=== PATIENT | female | born 1960 | race Caucasian/White ===

== ENCOUNTER 2025-06-09 04:55 | Inpatient (IN) ==
[2025-05-22 13:54] LABS: INR 0.9 (0.9-1.1); Prothrombin Time 13.2 sec (11.9-14.5)
[2025-05-22 14:03] LABS: Basophils # (Auto) 0.08 K/mcL (0.00-0.30); Basophils % (Auto) 1.4 % (0.0-2.0); Eosinophils # (Auto) 0.19 K/mcL (0.00-0.70); Eosinophils % (Auto) 3.2 % (0.0-7.0); Hematocrit 39.5 % (34.1-44.9); Hemoglobin 13.0 g/dL (11.2-15.7); Lymphocytes # (Auto) 1.31 K/mcL (1.50-4.80); Lymphocytes % (Auto) 22.2 % (15.5-49.0); Mean Corpuscular HGB Conc 32.9 g/dL (31.0-36.0); Monocytes # (Auto) 0.43 K/mcL (0.10-0.90); Monocytes % (Auto) 7.3 % (1.0-12.0); Neutrophils % (Auto) 65.4 % (38.0-78.0); Platelet Count 239 K/mcL (140-440); RBC 4.16 M/mcL (3.59-5.38); WBC 5.9 K/mcL (4.5-11.0)
[2025-05-22 14:07] LABS: Estimated Average Glucose(eAG) 128 mg/dL; Hemoglobin A1C 6.1 % Hgb (4.0-6.0)
[2025-05-22 14:16] LABS: Bilirubin,Urine Negative (Negative); Color,Urine STRAW; Glucose,Urine (UA) Negative (Negative); Ketones,Urine Negative (Negative); Leukocyte Esterase,Urine Negative /uL (Negative); PH,Urine 6.0 (5.0-9.0); Protein,Urine Negative (Negative); Specific Gravity,Urine 1.002 (1.000-1.035); Urobilinogen,Urine Negative
[2025-05-22 14:18] LABS: ALT/SGPT 19 U/L (<40); AST/SGOT 22 U/L (<32); Albumin 4.1 gm/dL (3.2-5.2); Albumin/Globulin Ratio 1.6 (1.0-2.3); Alkaline Phosphatase 40 U/L (39-117); Anion Gap 9.0 (8.0-16.0); Bilirubin,Total 0.2 mg/dL (0.1-1.0); Blood Urea Nitrogen 11 mg/dL (8-23); Calcium 9.5 mg/dL (8.6-10.4); Carbon Dioxide 26 mmol/L (22-30); Chloride 105 mmol/L (96-108); Globulin 2.5 gm/dL (2.2-3.7); Glucose 96 mg/dL (70-105); Potassium 3.9 mmol/L (3.3-5.1); Sodium 140 mmol/L (133-145)
[2025-06-09] MEDS: ACETAMINOPHEN 500 MG TABLET PO SCH (06:48)
[2025-06-09] MEDS: oxyCODONE 10 MG TAB.ER.12H PO SCH (06:48)
[2025-06-09] MEDS: PREGABALIN 75 MG CAPSULE PO SCH (06:48)
[2025-06-09] MEDS: CELECOXIB 200 MG CAPSULE PO SCH (06:49)
[2025-06-09] MEDS ORDERED: GLYCOPYRROLATE 0.2 MG/ML VIAL IV ONE (07:02)
[2025-06-09] MEDS ORDERED: DEXAMETHASONE 10 MG/ML VIAL ONE (07:02)
[2025-06-09] MEDS ORDERED: LIDOCAINE 2% PF 5 ML VIAL ONE (07:02)
[2025-06-09] MEDS ORDERED: PROPOFOL 200 MG/20 ML VIAL IV ONE (07:02)
[2025-06-09] MEDS ORDERED: ONDANSETRON 4 MG/2 ML VIAL ONE (07:02)
[2025-06-09] MEDS: ceFAZolin 2 GM in DEXTROSE 5% IN WATER 50 ML IV SCH (07:20)
[2025-06-09] MEDS ORDERED: fentaNYL 100 MCG/2 ML VIAL ONE (07:22)
[2025-06-09] MEDS ORDERED: FAMOTIDINE/PF 20 MG/2 ML VIAL IV ONE (07:22)
[2025-06-09] MEDS ORDERED: ROPIVACAINE HCL/PF 30 ML VIAL IJ ONE (07:35)
[2025-06-09] MEDS ORDERED: ePHEDrine 50 MG/5 ML SYRINGE (ANEST) IV ONE (07:41)
[2025-06-09] MEDS ORDERED: IPRATROPIUM/ALBUTEROL 3 ML AMPUL.NEB NEB PRN (07:52)
[2025-06-09] MEDS: 0.9 % SODIUM CHLORIDE 9 ML, KETOROLAC 30 MG, ROPIVACAINE HCL/PF 49.5 ML, EPINEPHrine 0.... IJ SCH (08:09)
[2025-06-09] MEDS ORDERED: BENZOCAINE/MENTHOL 1 LOZENGE PO PRN (08:31)
[2025-06-09] MEDS ORDERED: TEMAZEPAM 15 MG CAPSULE PO PRN (08:31)
[2025-06-09] MEDS ORDERED: MAGNESIUM HYDROXIDE 30 ML ORAL.SUSP PO PRN (08:31)
[2025-06-09] MEDS: KETOROLAC 15 MG/ML VIAL IV PRN (08:56)
[2025-06-09] MEDS: METHOCARBAMOL 1,000 MG/10 ML VIAL IV PRN (08:58)
[2025-06-09] MEDS ORDERED: [UNRECOGNIZED DRUG - OTHER] PO SCH (09:00)
[2025-06-09] MEDS ORDERED: NON FORMULARY MEDICATION 1 DOSE MISCELL (Calcium Carbonate-Vitamin D3 [Calcium 600 + D(3)] PO SCH (09:00)
[2025-06-09] MEDS ORDERED: TROLAMINE SALICYLATE 10% TOPICAL SCH (09:00)
[2025-06-09] MEDS: TRANEXAMIC ACID 1,000 MG/10 ML VIAL IV ONE (09:02)
[2025-06-09] MEDS: HYDROmorphone 0.5 MG/0.5 ML SYRINGE IV PRN (09:12)
[2025-06-09] MEDS: ONDANSETRON 4 MG/2 ML VIAL IV PRN ×2 (09:25→13:10)
[2025-06-09] MEDS: FENOFIBRATE 43 MG CAPSULE PO SCH (09:48)
[2025-06-09] MEDS: ASPIRIN 81 MG TAB.CHEW CHEWED SCH (09:49)
[2025-06-09] MEDS: DOCUSATE SODIUM 100 MG CAPSULE PO SCH (09:49)
[2025-06-09] MEDS: MAGNESIUM OXIDE 400 MG TABLET PO SCH (09:49)
[2025-06-09] MEDS: MULTIVIT,THER IRON,CA,FA & MIN 1 TABLET PO SCH (09:49)
[2025-06-09] MEDS: 0.9 % SODIUM CHLORIDE 1,000 ML IV SCH (09:51)
[2025-06-09] MEDS ORDERED: PROMETHAZINE 25 MG TABLET PO PRN (10:24)
[2025-06-09] MEDS: PROCHLORPERAZINE 10 MG/2 ML VIAL IV PRN (10:44)
[2025-06-09] MEDS: 0.9 % SODIUM CHLORIDE 10 ML SYRINGE IV SCH (12:05)
[2025-06-09] MEDS ORDERED: ACETAMINOPHEN 325 MG TABLET PO PRN (13:00)
[2025-06-09] MEDS: MELATONIN 3 MG TABLET PO SCH (20:27)
[2025-06-10] MEDS: HYDROcodone/APAP 10/325MG TABLET PO PRN (03:23)
[2025-06-10] MEDS: OMEPRAZOLE 20 MG CAPSULE PO SCH (07:44)
== END 2025-06-10 14:25 | disposition home or self-care (01) | DRG 489 ==
LOC: MEDSUR 04:55
PROVIDERS: ADMIT Orthopaedic Surgery; ATTEND Orthopaedic Surgery